=== PATIENT | male | born 1970 | race Caucasian/White ===

== ENCOUNTER → 2016-05-07 | Outpatient (CLI) | payer BC ==
[~2016-05-07] MED LIST: ONDA4TAB7 SL; POTATAB13 PO; TAMS0.4C38 PO
--- NOTE | 2016-05-07 10:00 | DIAGNOSTIC IMAGING REPORT ---
RIGHT KNEE 4 OR MORE CLINICAL HISTORY: RIGHT KNEE PAIN Right pain COMPARISON: None DISCUSSION: Minimal degenerative change medial joint compartment. Mild degenerative change patellofemoral joint. Small reactive osteophyte scattered throughout the intercondylar region as well as superior and inferior patella. There is no evidence for soft tissue swelling. IMPRESSION: Minimal to very mild degenerative change. Mild osteophytic reaction throughout. Electronically signed by: Ángel Murillo M.D. 05/07/2016 9:59 AM Dictated Date/Time: 05/07/2016 9:58 AM
== END | disposition home or self-care (01) ==
LOC: C.RDSM 15:04
PROVIDERS: ATTEND Physician Assistant
DX: M25.561 Pain in right knee (principal)

== ENCOUNTER 2023-02-08 11:54 | Inpatient (IN) ==
[2023-02-08] MEDS ORDERED: NITROGLYCERIN SL 0.4 MG/TAB TAB SL STA (12:00)
--- NOTE | 2023-02-08 12:04 | Emergency Department Note ---
Impression & Plan Unstable angina, Abnormal ECG ED Provider Note Name: CHANDRIKA NI Age: 53 Sex: Male Arrives Via: Ambulance Informant: Patient ED Provider: James Luis MD Chief Complaint: Chest pain Impression: As per impressions above Medical Decision Making: Pleasant 53-year-old gentleman without significant past medical history arrives for evaluation of intermittent substernal chest pain over the last week. More severe this morning while at PCP office and sent to the ER via EMS for further evaluation already received aspirin 324 mg prior to arrival. Still some mild chest pain at this point. Given nitro did seem to improve. Initial EKG is somewhat concerning for T wave inversions and some nonspecific ST elevations. These are new from previous EKG. After pain control symptoms improved and EKG looks better. Initial troponin was good. Chest x-ray looks good. He has no evidence of DVT or dissection. Patient does not have much in the way of risk factors for cardiac disease and he keeps relatively active. Unfortunately with abnormal EKG and his symptoms I feel hospitalization is indicated. Discussed with hospitalist will bring in for further workup and evaluation. Discussed heparin with hospitalist and defer until their evaluation as he is not currently having active chest pain. Triage/Nursing Notes reviewed by Me Differential:Cardiac ischemia, aortic dissection, pulmonary embolism, pneumothorax, pneumonia, pericarditis, myocarditis, esophageal rupture, GERD, cholecystitis, pancreatitis, musculoskeletal, as well as other pathologies. Vital Signs: reviewed and remarkable for no significant abnormalities Interventions: Nitro sublingual Labs:ED labs Reviewed by me and remarkable for no significant abnormalities Imaging:X ray results are stated below per my interpretation: Chest: 1 view: No infiltrate, no effusion, normal cardiac border. EKG:As per my interpretation. Indication chest pain. Normal sinus rhythm at 73 bpm and an incomplete right bundle branch block. There are nonspecific ST elevations anterior and laterally not meeting full STEMI criteria. Does have flipped T waves laterally as well. There are no previous EKGs for comparison. Cardiac/Tele Monitoring: Cardiac Monitoring: An Order was placed for continuous cardiac monitoring. The monitor shows a rate of 70 with a normal sinus rhythm. Consults:Dr Jaleel EWING Hospitalist Plan: Disposition:Hospitalization. Condition: Good History of Present Illness: 53-year-old male arrives for evaluation of chest pain. Patient notes over the last 2 weeks intermittent substernal chest pressure. No radiation of pain. No associated shortness of breath, palpitations, neck pain, nausea, vomiting, lightheadedness or other concerning signs or symptoms. On and off no specific inciting events. States has been active without problem. This morning he once again got symptoms. He took an aspirin and saw his PCP who advised to go to the ER nonnormal was called. Patient notes pain is started to resolve after full dose aspirin by EMS but since getting here he notes some mild return of discomfort. He has not any nitro. Denies any previous cardiac disease. Does have a history of renal colic and kidney stones for which he gets flank pain periodically. Does not take any medications daily. No family history of cardiac disease. Denies any long car trips or travel recently. Past Medical History: Intermittent renal colic Home Medications: No daily medications Allergies: Denies any allergies Vitals:Blood Pressure: 117/78, Pulse 73, RR 18, T 37C, O2 96% on RA Physical Exam: GENERAL: Patient is mildly anxious appearing and in minimal distress. RESPIRATORY: No dyspnea. Clear to auscultation and equal bilaterally. CARDIOVASCULAR: Regular rate and rhythm.No murmur appreciated. GASTROINTESTINAL: Abdomen soft, non-tender, no peritonitis. EXTREMITIES: Normal motion all extremities, no cyanosis, no edema. NEUROLOGIC: Alert and oriented. No focal neurologic deficits appreciated SKIN: No rash, no jaundice, no diaphoresis. PSYCH: Appropriate GCS: 15 ED Course: Times/Reassessments: Stable no distress symptoms have resolved. Discussed with both patient and his at bedside. They are both comfortable plan for hospitalization understand the reasoning is abnormal EKG in the setting of chest pain. James Luis MD Past Med/Surg History Social History Smoking Status: Never smoker Preferred Language: Ugandan Feels Safe at Home: Yes Allergies Allergies Allergy/AdvReac Type Severity Reaction Status Date / Time No Known Allergies AdvReac Unknown Verified 02/08/23 14:45 Home Meds Home Medications Medication Instructions Recorded Confirmed aspirin 81 mg chewable tablet 81 mg PO .TODAY 02/08/23 02/08/23 calcium carbonate 200 mg calcium 0 mg PO BID PRN .. 02/08/23 02/08/23 (500 mg) chewable tablet (Tums) Results & Data (ED) Vital Signs Vital Signs - 24 hr 02/08/23 12:00 02/08/23 12:01 02/08/23 12:23 Temperature 37 C Temperature Source Oral Pulse Rate 80 75 Pulse Rate from SpO2 Sensor Respiratory Rate 18 Blood Pressure 138/90 Blood Pressure Mean 106 Pulse Oximetry 98 98 Oxygen Delivery Method Room Air Sepsis Recent Fever Within 48 Hours No Sepsis New/Unexplained Change in Mental Status No Sepsis Action Taken by Nursing No Action Required 02/08/23 12:30 02/08/23 12:40 02/08/23 12:51 Temperature Temperature Source Pulse Rate 83 76 Pulse Rate from SpO2 Sensor 85 72 Respiratory Rate 23 13 Blood Pressure 127/82 Blood Pressure Mean 97 Pulse Oximetry 94 97 Oxygen Delivery Method Sepsis Recent Fever Within 48 Hours Sepsis New/Unexplained Change in Mental Status Sepsis Action Taken by Nursing 02/08/23 13:00 02/08/23 13:10 02/08/23 13:20 Temperature Temperature Source Pulse Rate Pulse Rate from SpO2 Sensor 65 69 70 Respiratory Rate Blood Pressure Blood Pressure Mean Pulse Oximetry 98 97 98 Oxygen Delivery Method Sepsis Recent Fever Within 48 Hours Sepsis New/Unexplained Change in Mental Status Sepsis Action Taken by Nursing 02/08/23 13:30 02/08/23 13:40 Temperature Temperature Source Pulse Rate Pulse Rate from SpO2 Sensor 71 75 Respiratory Rate Blood Pressure Blood Pressure Mean Pulse Oximetry 97 98 Oxygen Delivery Method Sepsis Recent Fever Within 48 Hours Sepsis New/Unexplained Change in Mental Status Sepsis Action Taken by Nursing Laboratory Data 02/08/23 12:10 02/08/23 12:10 Lab Results 02/08/23 Range/Units 12:10 WBC 6.73 (4.8-10.8) K/ul RBC 4.88 (4.70-6.10) M/uL Hgb 14.7 (14.0-18.0) g/dl Hct 44.9 (42.0-52.0) % MCV 92.0 (80.0-100.0) fL MCH 30.1 (25.0-34.0) pg MCHC 32.7 (32.0-36.0) g/dL RDW Std Deviation 47.2 H (36.4-46.3) fL RDW Coeff of Donnie 13.9 (11.5-14.5) % Plt Count 298 (130-400) K/uL MPV 9.4 (9.4-12.4) fL Immature Gran % (Auto) 0.3 % Neut % (Auto) 53.2 % Lymph % (Auto) 31.5 % Garfield % (Auto) 7.3 % Eos % (Auto) 6.5 % Baso % (Auto) 1.2 % Neut # (Auto) 3.58 (1.40-6.50) K/uL Lymph # (Auto) 2.12 (1.20-3.40) K/uL Garfield # (Auto) 0.49 (0.11-0.59) K/uL Eos # (Auto) 0.44 (0.00-0.50) K/uL Baso # (Auto) 0.08 (0.00-0.20) K/uL Immature Gran # (Auto) 0.02 (0.01-0.20) K/uL Sodium 137 (136-145) mmol/L Potassium 4.5 (3.5-5.1) mmol/L Chloride 106 (98-107) mmol/L Carbon Dioxide 24 (21-32) mmol/L Anion Gap 7 (3-11) BUN 16 (6-23) mg/dl Creatinine 0.66 (0.6-1.4) mg/dl Est Cr Clr Drug Dosing 168.2 ml/min Est GFR ( Amer) 127.9 ml/min Est GFR (Non-Af Amer) 110.4 ml/min BUN/Creatinine Ratio 24.2 H (10-20) Glucose 104 H (70-99(Fasting)) mg/dl Calcium 9.7 (8.6-10.3) mg/dl Magnesium 2.1 (1.7-2.4) mg/dl Total Bilirubin 0.5 (0.2-1.0) mg/dl Direct Bilirubin 0.1 (0-0.2) mg/dl AST 44 H (13-39) U/L ALT 54 H (7-52) U/L Alkaline Phosphatase 56 (34-104) U/L Troponin I High Sens 4.7 (0-20) pg/ml Total Protein 7.1 (6.0-8.3) gm/dl Albumin 4.2 (3.4-5.0) gm/dl Lipase 13 (11-82) U/L Administered Medications Acetaminophen (Acetaminophen 325 Mg Tab) 650 mg PO Q4H PRN PRN Reason: pain or headache Stop: 03/10/23 17:51 Last Admin: 02/08/23 18:01 Dose: 650 mg Documented By: MARKY Heparin Sodium/Dextrose (Heparin Sodium/Dextrose) 25,000 units in 500 mls @ 33 mls/hr IV .[id number] CONSTANZA; Protocol Stop: 03/10/23 14:14 Last Admin: 02/08/23 16:25 Dose: 1,650 units/hr, 33 mls/hr Documented By: MARKY Co-signed By: BRET Discontinued Medications Heparin Sodium/Dextrose (Heparin Iv Adult Wt-Based Standard *No* Initial Bolus Protocol) 1 each IV ONE STA; Protocol Stop: 02/08/23 13:51 Last Admin: 02/08/23 16:25 Dose: 1 each Documented By: MARKY Nitroglycerin (Nitroglycerin Sl 0.4 Mg/Tab Tab) 0.4 mg SL NOW STA Stop: 02/08/23 12:01 Last Admin: 02/08/23 12:20 Dose: 0.4 mg Documented By: BRET Nitroglycerin (Nitroglycerin 2% Ointment 30gm Tube) 0.5 inch EXT ONE STA Stop: 02/08/23 14:28 Last Admin: 02/08/23 15:11 Dose: 0.5 inch Documented By: MARKY Imaging Data Radiologist's Impression: Chest X-Ray 02/08/23 12:01 XR chest 1V portable HISTORY: 53 years-old Male chest pain acute chest pain COMPARISON: 05/20/2014 TECHNIQUE: AP view of the chest FINDINGS: Cardiac silhouette is enlarged. No pneumothorax, pleural effusion, airspace consolidation or pulmonary edema. Bones appear grossly intact. IMPRESSION: No acute process. ACT 112: Negative or not required by law. The above report was generated using voice recognition software. It may contain grammatical, syntax or spelling errors. Electronically signed by: Gregg Amor M.D. 02/08/2023 12:20 PM Discharge Plan Visit Data Chief Complaint: Chest Pain Stated Complaint: Chest Pain ED Provider: James Luis Discharge Problem: Unstable angina, Abnormal ECG Patient Disposition: Admitted As Inpatient Discharge Instructions Interventions: ED Discharge Assessment Last Done: 02/08/23 15:50
--- NOTE | 2023-02-08 12:22 | XRay Report ---
XR chest 1V portable HISTORY: 53 years-old Male chest pain acute chest pain COMPARISON: 05/20/2014 TECHNIQUE: AP view of the chest FINDINGS: Cardiac silhouette is enlarged. No pneumothorax, pleural effusion, airspace consolidation or pulmonar y edema. Bones appear grossly intact. IMPRESSION: No acute process. ACT 112: Negative or not required by law. The above report was generated using voice recognition software. It may contain grammatical, syntax o r spelling errors. Electronically signed by: Gregg Amor M.D. 02/08/2023 12:20 PM
[2023-02-08 12:38] LABS: Basophils # (auto) 0.08 K/uL (0.00-0.20); Basophils % (auto) 1.2 %; Eosinophils # (auto) 0.44 K/uL (0.00-0.50); Eosinophils % (auto) 6.5 %; Hematocrit (blood only) 44.9 % (42.0-52.0); Hemoglobin 14.7 g/dl (14.0-18.0); Immature Granulocytes # (auto) 0.02 K/uL (0.01-0.20); Immature Granulocytes % (auto) 0.3 %; Lymphocytes # (auto) 2.12 K/uL (1.20-3.40); Lymphocytes % (auto) 31.5 %; Mean Corpuscular Hemoglobin 30.1 pg (25.0-34.0); Mean Corpuscular Hgb Conc 32.7 g/dL (32.0-36.0); Mean Platelet Volume 9.4 fL (9.4-12.4); Monocytes # (auto) 0.49 K/uL (0.11-0.59); Monocytes % (auto) 7.3 %; Neutrophils # (auto) 3.58 K/uL (1.40-6.50); Neutrophils % (auto) 53.2 %; Platelet Count 298 K/uL (130-400); RDW Coefficient of Variation 13.9 % (11.5-14.5); RDW Standard Deviation 47.2 fL (36.4-46.3); Red Blood Count 4.88 M/uL (4.70-6.10); White Blood Count 6.73 K/ul (4.8-10.8)
[2023-02-08 12:56] LABS: Albumin Level 4.2 gm/dl (3.4-5.0); BUN Creatinine Ratio 24.2 (10-20); Bilirubin,Total 0.5 mg/dl (0.2-1.0); Calcium 9.7 mg/dl (8.6-10.3); Creatinine Clr Calc Pharmacy 168.2 ml/min; Est GFR (African American) 127.9 ml/min; Est GFR (Non-African American) 110.4 ml/min; Magnesium 2.1 mg/dl (1.7-2.4); Potassium 4.5 mmol/L (3.5-5.1); Total Protein 7.1 gm/dl (6.0-8.3)
[2023-02-08 12:58] LABS: Troponin I High Sensitivity 4.7 pg/ml (0-20)
[2023-02-08 13:11] LABS: Bilirubin Direct 0.1 mg/dl (0-0.2)
[2023-02-08] MEDS ORDERED: Heparin IV Adult Wt-Based Standard *NO* INITIAL Bolus Protocol IV STA (13:50)
[2023-02-08] MEDS ORDERED: NITROGLYCERIN 2% OINTMENT 30GM TUBE EXT STA (14:27)
[2023-02-08] MEDS: HEPARIN SODIUM/DEXTROSE 25,000 UNITS/500 ML BAG IV SCH (16:25)
--- NOTE | 2023-02-08 16:42 | History & Physical Report ---
Date of Service February 08, 2023 Assessment & Plan (1) Chest pain: Plan: Concern for the possibility of unstable angina. Patient will be admitted to PCU Placed on heparin IV and nitroglycerin paste. will consult cardio for possibility of coronary cath. amanda DOWLING after midnight. Admission and Anticipated Discharge Date Admission Date: February 08, 2023 History of Present Illness Chief Complaint: chest pain Primary Care Provider: Stacy Tolbert MD 53 yo male with no significant past medical history present with chest pain. Patient reports this has been ongoing for about 6 weeks where he has noticed it with moments of stress or when he eats. Patient describes the pain as pressure like in nature, located around midsternum, nonradiating. He does reports that for the past 2 weeks, he has noticed the pain more. HOwever he reports in the 2 week time fram, pain has not changed in intensity, nor is brought up with activity, nor is it more frequent. Also no change in duration. In the ED, EKG changes showed Allergies Allergy/AdvReac Type Severity Reaction Status Date / Time No Known Allergies AdvReac Unknown Verified 02/08/23 14:45 Home Medications Medication Instructions Recorded Confirmed Type aspirin 81 mg chewable tablet 81 mg PO .TODAY 02/08/23 02/08/23 History calcium carbonate 200 mg calcium 0 mg PO BID PRN .. 02/08/23 02/08/23 History (500 mg) chewable tablet (Tums) Past Med/Surg History Social History Smoking Status: Never smoker Hx Alcohol Use: Yes Alcohol type: beer and hard liquor Hx Substance Use: No Preferred Language: Jamaican Communication Ability: Effective Caption Writer Required: No Beliefs That Will Affect Care: None Current Living Situation: Parent Feels Safe at Home: Yes Assistive Devices: None Review of Systems Constitutional: no fever Eyes: no blind spots Ear, Nose, Mouth, Throat: no ear pain Respiratory: no cough Cardiovascular: + chest pain; no radiating jaw, neck or arm pain Gastrointestinal: no abdominal pain Musculoskeletal: no back pain Integumentary: no acne Neurologic: no gait abnormality Psychiatric: no behavioral changes Endocrine: no fatigue Allergy / Immunological: no GI upset with certain foods Physical Exam Constitutional: WD/WN, vitals as above Eyes: PERRL, conjunctivae normal, anicteric sclerae ENMT: external ear and nose normal, oropharynx normal Neck: trachea midline, no thyromegaly Respiratory: normal respiratory effort, lungs clear to auscultation Cardiovascular: RRR, no murmur, no edema Gastrointestinal (Abdomen): normal bowel sounds, soft, nontender, no hepatosplenomegaly Musculoskeletal: no cyanosis or clubbing, extremities motor strength 5/5 Skin: no rashes, warm and dry Psychiatric: A+Ox3, euthymic affect Lymphatic: no cervical or axillary lymphadenopathy Results & Data Results & Data Vital Signs (Past 12 Hours) Vital Signs Temp Pulse Resp BP Pulse Ox O2 Del Method 02/08/23 12:23 75 02/08/23 12:01 37 C 80 18 138/90 98 02/08/23 12:00 98 Room Air PG Care Time/CCT Total # of Minutes Spent Total Time Spent with Patient: Total time spent is greater than 50% in coordination of care (as documented) at patient's floor/unit and/or counseling patient: Coding Level of Care Code 00388 INT INP/OBS CARE MIN Diagnoses Chest pain R07.9
--- OUTSIDE RECORDS SUMMARY | 2023-02-08 17:13 | External Medical Summary | Continuity of Care Document ---
Author Name Unknown Organization [facility] [address] [facility] Address [address] [place], [place] [id number] Care Team Providers Care Unarmed Security Guard Name Role Phone Stacy Tolbert Primary Care Physician [phone] [id number] Date(s): 08/27/22 - 08/27/22 [facility] [address], [address] [place] [address] [phone] Encounter Diagnosis YULIANA (obstructive sleep apnea)(Discharge Diagnosis) - 08/27/22 Discharge Disposition: Home or Self Care Attending Physician: MD Tolbert Amy L Allergies, Adverse Reactions, Alerts No Known Medication Allergies Assessment and Plan Extracted from: Title:Office Visit Note Author:MD Tolbert Amy L D ate:08/27/22 YULIANA (obstructive sleep apnea ) STATUS: Chronic, worse. DATA: hx& sleep study reviewed. GOAL: Maintain nocturnal oxygenation, improve energy. PLAN: discussed nature of sleep apnea. Reviewed implications of severe YULIANA, as well as tx options. Order auto-titrating CPAP. Discussed use of small devices made for travel (but likely at his own expense). Return in 2 months for recheck. Return in 2 months. Immunizations Given and Recorded Vaccine Date Status Refusal Reason influenza virus vaccine, inactivated 10/30/18 Give n influenza virus vaccine, inactivated 11/02/16 Give n tetanus/diphtheria/pertuss, acel (Tdap) 11/02/16 G iven Medications No Known Medications Mental Status 08/27/22 Barriers to Learning one year None evide nt Mandatory Health Literacy Documentation Yes Health Literacy Communication Barriers N ever Primary Language Kittitian Problem List Condition Confirmation Course Effective Dates Status Health St atus Informant Acute URI Confirmed Active Chronic prostatitis with hematuria Confirmed Active Thyromegaly Confirmed Active Dry cough Confirmed Active Family history of prostate cancer Confirmed Active Family history of kidney stone Confirmed Active Hematuria, gross Confirmed Active Hernia, inguinal, left Confirmed Active Lipoma Confirmed Active Dysplastic nevi Confirmed Active Night sweats Confirmed Active YULIANA (obstructive sleep apnea) Confirmed Active Overweight Confirmed Active Annual physical exam Confirmed Active Annual physical exam Confirmed Active Generalized skin lesions Confirmed Active Synovial hypertrophy Confirmed Active Tear of medial meniscus of knee Confirmed Active Tobacco user Confirmed Active Weight disorder Confirmed Active Diagnosis Diagnosis Type Effective Dates Health Status Cl inical Service Informant YULIANA (obstructive sleep apnea) Discharge Diagnosis 08/27/22 Non-Specified Procedures Procedure Date Related Diagnosis Body Site Status Ultrasound 1 11/01/18 Completed X-ray of right knee 2 05/07/16 Com pleted KUB X-ray 3 02/17/15 Completed Intravenous pyelogram 4 07/02/14 C ompleted X-ray of abdomen 5 06/05/14 Comple elaina X-ray of abdomen 6 05/23/[address] of abdomen and pelvis 7 05/15/14 Completed Knee X-ray 8 02/13/14 Completed Repair of inguinal hernia 9 11/23/13 Completed Ultrasound 10 09/10/13 Completed History of shoulder surgery 11 Completed 1IMPRESSION: 1. Several subcentimeter thyroid nodules which have benign imaging characteristics. None meet criteria for biopsy. 2. Mild enlargement of the right thyroid lobe. 2Minimal to very mild degerative change. Mild osteophytic reaction throughout. 3Decrease in number of stones within the lower pole of the left kidney. No ureteral calculi. 4Several calculi gragments within the lower pole of the left kidney. Otherwise, normal intravenous pyelogram. No uretal calculi. No hydronephrosis. 5Left-sided nephrolithiasis. A 6mm left pelvic basin calcification viewed as suspicious for a calculus at the levrl of the left 6Left sided nephrolithiasis. No evidence of pathologic bowel dilatation 7Clustered claculi wihtin the lower pole of lef kidney measuring up to 7 mm. No ureteral calculi or hydronephrosis 8Suspected bilateral small loose bodies. No evidence of fracture, Bilateral degenerative changes in the patellofemoral joints with dorsal patellar spurring bilaterally. 9Left 10Reducible fat containing left inguinal hernia ht 1991 Vital Signs Most recent to oldest [Reference Range]: 1 Patient Weight 98.7 kg (08/27/22 9:31 AM) Heart Rate 62 bpm (08/27/22 9:31 AM) Respiratory Rate 20 br/min (08/27/22 9:31 AM) Blood Pressure 104/72mmHg (08/27/22 9:31 AM) Cuff Pulse Pressure 32 mmHg (08/27/22 9:31 AM) BP Location # 1 Left Arm, Manual (08/27/22 9:31 AM) Social History Social History Type Response Smoking Status Never smoked cigaret viviana Sex Male FCM Outpt Note * MD Tomasz, Stacy Patel: PERFORM Event Display: FCM Outpt Note Authored Date: [id number] Chief Complaint Discussed sleep study results History of Present Illness YULIANA - to discuss CPAP, as he had recent sleep study that showed severe sleep.He does acknowledge that he is frequently tired/sleepy during the day. Not sure about snoring. Physical Exam Vitals & Measurements HR:62(Monitored) RR:20 BP:104/72 SpO2:97% WT:98.700kg(Dosing) WT:98.7kg PHQ2 Data(Data Documented on:08/27/2022 09:31) Emotional health assessment NEGATIVE General : Alert, in NAD. Respiratory : Speaks easily in full sentences, with no respiratory distress. Psych : answers all questions appropriately, mood seems normal. Assessment/Plan YULIANA (obstructive sleep apnea) STATUS: Chronic, worse. DATA: hx& sleep study reviewed. GOAL: Maintain nocturnal oxygenation, improve energy. PLAN: discussed nature of sleep apnea. Reviewed implications of severe YULIANA, as well as tx options. Order auto-titrating CPAP. Discussed use of small devices made for travel (but likely at his own expense). Return in 2 months for recheck. Return in 2 months. Problem List/Past Medical History Ongoing Acute URI Annual physical exam Annual physical exam Chronic prostatitis with hematuria Dry cough Dysplastic nevi Family history of kidney stone Family history of prostate cancer Generalized skin lesions Hematuria, gross Hernia, inguinal, left Lipoma Night sweats YULIANA (obstructive sleep apnea) Overweight Synovial hypertrophy Tear of medial meniscus of knee Thyromegaly Tobacco user Weight disorder Procedure/Surgical History Ultrasound (11/01/2018)X-ray of right knee (05/07/2016)KUB X-ray (02/17/2015)Intravenous pyelogram (07/02/2014)X-ray of abdomen (06/05/2014)X-ray of abdomen (05/23/2014)CT of abdomen and pelvis (05/15/2014)Knee X-ray (02/13/2014)Repair of inguinal hernia (11/23/2013)Ultrasound (09/10/2013)History of shoulder surgery Allergies No Known Medication Allergies Social History Smoking Status Never smoked cigarettes Alcohol Use:Current Type:Beer Frequency:3-5 times per week Average drinks per episode in last year:2 Exercise Times per week:5-6 times/week 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 Prostate carcinoma: Father (Dx at 76). Health Status Family Member(s) Immunizations Vaccine Date Status influenza virus vaccine, inactivated 10/30/2018 Given influenza virus vaccine, inactivated 11/02/2016 Given tetanus/diphtheria/pertuss, acel (Tdap) 11/02/2016 Given Recommendations Health Maintenance Pending(in the next year) Due Adult Influenza Vaccine due08/07/22and every 1year Adult COVID-19 Vaccination due08/27/22Unknown Frequency Hepatitis C Screening due08/27/22One-time only Lipid Screening due08/27/22Unknown Frequency Shingles Vaccine due08/27/22One-time only Due In Future Body Mass Index not due until08/27/23and every 1year Satisfied(in the past 1 year) Satisfied Body Mass Index on03/11/22.Satisfied by SALOMÓN Metzger Paul Colorectal Cancer Screening on04/13/22.Satisfied by LUC Hart Cassidy Electronic Signature on File Electronically Reviewed/Signed by: Stacy Tolbert MD Author Signature Dt/Tm:08/27/2022 09:59 AM [facility] [address] [place] [address] [facility] Patient Care team information Care Team Personnel Name: MD Tolbert Amy L Position: Physician - Family Med Member Role: Primary Care Provider Address: Address: [address] [place] [address], [place] [address] [place] Care Team Related Persons Name: MEE NI Address: [place] Address: home [address] [place], [place] [id number] Name: BACILIO NI Address: home [address] [place], [place] [id number]
--- OUTSIDE RECORDS SUMMARY | 2023-02-08 17:13 | External Medical Summary | Continuity of Care Document ---
Author Name Unknown Organization [facility] [address] [facility] Address [address] [place], [place] [id number] Care Team Providers Care Manager Surgical Name Role Phone Stacy Tolbert Primary Care Physician [phone] [id number] Date(s): 12/03/22 - 12/03/22 [facility] [address], [address] [place] [address] [phone] Encounter Diagnosis YULIANA (obstructive sleep apnea)(Discharge Diagnosis) - 12/02/22 Family history of prostate cancer in father(Discharge Diagnosis) - 12/03/22 Discharge Disposition: Home or Self Care Attending Physician: MD Tolbert Amy L Referring Physician: MD Tolbert Amy L Allergies, Adverse Reactions, Alerts No Known Medication Allergies Assessment and Plan Extracted from: Title:Office Visit Note Author:MD Tolbert Amy L D ate:12/03/22 1.YULIANA (obstructive sleep a pnea) STATUS: Chronic, stable. DATA: hxreviewed. GOAL: Maintain nocturnal oxygenation, improve energy. PLAN: reviewed compliance report. He has worn mask over 80% of nights, almost all of which are >4hours. Reassured that he is doing well. Advised to take his mask to medical supplier to see if they feel that there are any leaks.Encouraged that his ability to tolerate CPAP should improve & would expect that his energy should also improve. 2.Family history of prostate cancer in father Discussed risks & benefits of PSA testing. He opts to have it done, will refer to urology, if elevated. Return in 4-6 months. Immunizations Given and Recorded Vaccine Date Status Refusal Reason influenza virus vaccine, inactivated 12/03/22 Give n influenza virus vaccine, inactivated 10/30/18 Give n influenza virus vaccine, inactivated 11/02/16 Give n tetanus/diphtheria/pertuss, acel (Tdap) 11/02/16 G iven Medications No Known Medications Mental Status 12/03/22 Mandatory Health Literacy Documentation Yes Health Literacy Communication Barriers N ever Primary Language Monegasque Problem List Condition Confirmation Course Effective Dates [...] Diagnosis Diagnosis Type Effective Dates Health Status inical Service Informant YULIANA (obstructive sleep apnea) Discharge Diagnosis 12/02/22 Non-Specified Family history of prostate cancer in father Discharge Diagnosis 12/03/22 Non-Specified Procedures Procedure Date Related Diagnosis Body Site Status Polysomnograph 1 05/31/22 Complete d Ultrasound 2 11/01/18 Completed X-ray of right knee 3 05/07/16 Com pleted KUB X-ray 4 02/17/15 Completed Intravenous pyelogram 5 07/02/14 C ompleted X-ray of abdomen 6 06/05/14 Comple elaina X-ray of abdomen 7 05/23/[address] of abdomen and pelvis 8 05/15/14 Completed Knee X-ray 9 02/13/14 Completed Repair of inguinal hernia 10 11/23/13 Completed Ultrasound 11 09/10/13 Completed History of shoulder surgery 12 Completed 1NovaSom Impression: 1. Severe YULIANA 2IMPRESSION: 1. Several subcentimeter thyroid nodules which have benign imaging characteristics. None meet criteria for biopsy. 2. Mild enlargement of the right thyroid lobe. 3Minimal to very mild degerative change. Mild osteophytic reaction throughout. 4Decrease in number of stones within the lower pole of the left kidney. No ureteral calculi. 5Several calculi gragments within the lower pole of the left kidney. Otherwise, normal intravenous pyelogram. No uretal calculi. No hydronephrosis. 6Left-sided nephrolithiasis. A 6mm left pelvic basin calcification viewed as suspicious for a calculus at the levrl of the left 7Left sided nephrolithiasis. No evidence of pathologic bowel dilatation 8Clustered claculi wihtin the lower pole of lef kidney measuring up to 7 mm. No ureteral calculi or hydronephrosis 9Suspected bilateral small loose bodies. No evidence of fracture, Bilateral degenerative changes in the patellofemoral joints with dorsal patellar spurring bilaterally. 10Left 11Reducible fat containing left inguinal hernia 12right 1991 Vital Signs Most recent to oldest [Reference Range]: 1 Patient Weight 98.8 kg (12/03/22 1:39 PM) Heart Rate 70 bpm (12/03/22 1:39 PM) Blood Pressure 110/62mmHg (12/03/22 1:39 PM) Cuff Pulse Pressure 48 mmHg (12/03/22 1:39 PM) BP Location # 1 Left Arm (12/03/22 1:39 PM) Social History Social History Type Response Smoking Status Never smoked cigaret viviana Sex Male [facility] Outpt Note * MD Tomasz, Stacy Patel: PERFORM Event Display: FCM Outpt Note Authored Date: Chief Complaint follow up, discuss kidney stones, would like PSA, CPAP compliance History of Present Illness Here for recheck offollowing concerns : 1)YULIANA - he has been using his CPAP almost every night. He knows that it should be helping him, but gets frustrated, because he feels that he's not sleeping as well since he started using it. Hesometimes has to take it off, as he just can't get to sleep at all while wearing it. 2) Nocturia - he has had this 1-2 times per night, mostly once. No dribbling or hesitation duringday. He may go a little more often during day. His father was diagnosed with prostate cancer in his 80's. He wondered if he should get his PSA tested. Physical Exam Vitals & Measurements HR:70(Monitored) BP:110/62 SpO2:97% WT:98.8kg WT:98.800kg(Dosing) PHQ2 Data(Data Documented on:12/03/2022 13:39) Emotional health assessment NEGATIVE General : Alert, in NAD. Respiratory : Speaks easily in full sentences, with no respiratory distress. Psych : answers all questions appropriately, mood seems normal. Assessment/Plan 1.YULIANA (obstructive sleep apnea) STATUS: Chronic, stable. DATA: hxreviewed. GOAL: Maintain nocturnal oxygenation, improve energy. PLAN: reviewed compliance report. He has worn mask over 80% of nights, almost all of which are >4hours. Reassured that he is doing well. Advised to take his mask to medical supplier to see if they feel that there are any leaks.Encouraged that his ability to tolerate CPAP should improve& would expect that his energy should also improve. 2.Family history of prostate cancer in father Discussed risks & benefits of PSA testing. He opts to have it done, will refer to urology, ifelevated. Return in 4-6 months. Problem List/Past Medical History Ongoing Acute URI Annual physical exam Annual physical exam Chronic prostatitis with hematuria Dry cough Dysplastic nevi Family history of kidney stone Family history of prostate cancer Generalized skin lesions Hematuria, gross Hernia, inguinal, left Lipoma Night sweats YULIANA (obstructive sleep apnea) Overweight Synovial hypertrophy Tear of medial meniscus of knee Thyromegaly Tobacco user Weight disorder Procedure/Surgical History Polysomnograph (05/31/2022)Ultrasound (11/01/2018)X-ray of right knee (05/07/2016)KUB X-ray (02/17/2015)Intravenous pyelogram (07/02/2014)X- ray of abdomen (06/05/2014)X-ray of abdomen (05/23/2014)CT of [...] Recommendations Health Maintenance Pending(in the next year) OverDue Adult Influenza Vaccine due08/07/22and every 1year Due Adult COVID-19 Vaccination due12/03/22Unknown Frequency Hepatitis C Screening due12/03/22One-time only Lipid Screening due12/03/22Unknown Frequency Shingles Vaccine due12/03/22One-time only Due In Future Body Mass Index not due until12/03/23and every 1year Satisfied(in the past 1 year) Satisfied Body Mass Index on03/11/22.Satisfied by SALOMÓN Metzger Paul Colorectal Cancer Screening on04/13/22.Satisfied by LUC Hart Cassidy Electronic Signature on File Electronically Reviewed/Signed by: Stacy Tolbert MD Author Signature Dt/Tm:12/03/2022 02:12 PM [facility] [address] [address] [facility] Patient Care team information Care Team Personnel Name: MD Tomasz, Stacy Patel Position: Physician - Family Med Member Role: Primary Care Provider Address: Address: [address] [place] [address] [place] Care Team Related Persons Name: MEE NI Address: [facility] Address: home [address] [place] [phone] Name: BACILIO NI Address: home [address] [place] [phone]
--- OUTSIDE RECORDS SUMMARY | 2023-02-08 17:13 | External Medical Summary | Continuity of Care Document ---
Author Name Unknown Organization [facility] Address [address] [place], [place] [id number] Care Team Providers Care Cooling System Operator Name Role Phone Stacy Tolbert Primary Care Physician [phone] [id number] Date(s): 08/27/22 - 08/27/22 [facility] [address] [place] [address] [phone] Encounter Diagnosis YULIANA (obstructive sleep apnea)(Discharge Diagnosis) [...] Literacy Communication Barriers N ever Primary Language Egyptian Problem List Condition Confirmation Course Effective Dates [...] Event Display: FCM Outpt Note Authored Date: [id number] Chief Complaint Discussed sleep study results History [...] Tolbert MD Author Signature Dt/Tm:08/27/2022 09:59 AM [facility] [address] [place] [address] [facility] Patient Care team information Care Team Personnel Name: MD Tolbert Amy L Position: Physician - Family Med Member Role: Primary Care Provider Address: Address: [address] [place] [address], [place] [address] [place] Care Team Related Persons Name: MEE NI Address: [place] Address: home [address] [place], [place] [phone] Name: BACILIO NI Address: home [address] [place], [place] [id number]
--- NOTE | 2023-02-08 17:16 | Cardiology Consultation ---
Date of Consultation February 08, 2023 Assessment & Plan (1) Chest pain: 2. YULIANA 3. Elevated LFTs Patient here with intermittent chest pain and dynamic EKG changes concerning for possible ACS. Initial HS TropI normal. Currently patient is chest pain-free, and hemodynamically and electrically stable. No need for urgent cardiac catheterization at this time. Recommendations: Admit for further monitoring on telemetry. Trend troponin, check echocardiogram in a.m. Continue aspirin, Nitropaste, start statin Start heparin, beta-irma if recurrent chest pain or troponin elevated Further ischemic testing tomorrow pending course. Please keep n.p.o. past midnight. If recurrent/persistent chest pain overnight please contact and will reconsider need for urgent cath History of Present Illness Attending Physician: Cal Marmolejo History of Present Illness Mr. Vega is a very pleasant 53-year-old man seen today in the ED due to stuttering chest pain and concern for ACS. No prior cardiac history. Past medical history includes YULIANA on CPAP and nephrolithiasis. No significant family history of CAD. Non-smoker. Patient endorses intermittent chest pain occurring primarily at rest over the last several weeks. Describes substernal pain, sometimes burning with occasional discomfort and back. No nausea, no presyncope, no palpitations. Episodes lasting minutes before going away on their own. He remains active playing tennis, hiking, exercising with no chest pain. Today had slightly more severe episode and presented to primary care who sent patient to ED after ECG. On arrival to ED ECG showed sinus rhythm with borderline ST elevations in V2 through V6 with T wave inversions in V4 through V6. Repeat ECG 30 minutes later showed resolution of ST changes. Initial HS TropI 4.7. Chest x-ray with no acute process. Currently patient states he is feeling well. Given aspirin, started on Nitropaste. Denies any significant chest pain over the last 3+ hours in the ED. Allergies Allergy/AdvReac Type Severity Reaction Status Date / Time No Known Allergies AdvReac Unknown Verified 02/08/23 14:45 Home Medications Medication Instructions Recorded Confirmed Type aspirin 81 mg chewable tablet 81 mg PO .TODAY 02/08/23 02/08/23 History calcium carbonate 200 mg calcium 0 mg PO BID PRN .. 02/08/23 02/08/23 History (500 mg) chewable tablet (Tums) Patient History Social History Smoking Status: Never smoker Preferred Language: Uzbek Feels Safe at Home: Yes Review of Systems Review of Systems: All systems reviewed & are unremarkable except as noted in HPI & below Physical Exam Physical Exam: General: Comfortable HEENT: Sclerae anicteric Lungs: Clear to auscultation bilaterally, no crackles or wheezes Cardiac: Regular rate and rhythm, no murmurs. Vascular: 2+ radial, DP pulses. No bruits Abdomen: Soft, nontender Extremities: Well perfused, no peripheral edema Neuro: Nonfocal Psych: Alert orient x3, normal affect and mood Results & Data Vital Signs (Past 12 Hours) Vital Signs Temp Pulse Resp BP Pulse Ox O2 Del Method 02/08/23 12:23 75 02/08/23 12:01 98.6 F 80 18 138/90 98 02/08/23 12:00 98 Room Air PG Care Time/CCT Total # of Minutes Spent Total Time Spent with Patient: Total time spent is greater than 50% in coordination of care (as documented) at patient's floor/unit and/or counseling patient: Coding Level of Care Code 49436 OFFICE CONSULT LVL M Diagnoses Chest pain R07.9
[2023-02-08 17:19] LABS: Partial Thromboplastin Time 29 Seconds (21-31); Prothrombin Time 11.1 Seconds (9.0-12.0)
[2023-02-08] MEDS: ACETAMINOPHEN 325 MG TAB PO PRN (18:01)
[2023-02-08 23:21] LABS: ANTI-Xa, UFH(UnfractionatedHep 0.31 IU/ml (0.3-0.7)
[2023-02-09] MEDS: ACETAMINOPHEN 325 MG TAB PO PRN (00:48)
[2023-02-09] MEDS: NITROGLYCERIN 2% OINTMENT 30GM TUBE EXT SCH ×2 (01:43→07:13)
[2023-02-09 06:23] LABS: Hemoglobin 13.7 g/dl (14.0-18.0); Mean Corpuscular Hemoglobin 30.2 pg (25.0-34.0); Mean Corpuscular Hgb Conc 32.6 g/dL (32.0-36.0); Mean Corpuscular Volume 92.7 fL (80.0-100.0); Mean Platelet Volume 9.1 fL (9.4-12.4); Platelet Count 273 K/uL (130-400); RDW Coefficient of Variation 13.7 % (11.5-14.5); RDW Standard Deviation 47.1 fL (36.4-46.3); Red Blood Count 4.53 M/uL (4.70-6.10); White Blood Count 8.79 K/ul (4.8-10.8)
[2023-02-09 06:34] LABS: BUN Creatinine Ratio 26.2 (10-20); Calcium 8.9 mg/dl (8.6-10.3); Creatinine Clr Calc Pharmacy 170.8 ml/min; Est GFR (African American) 128.7 ml/min; Est GFR (Non-African American) 111.1 ml/min; Potassium 4.1 mmol/L (3.5-5.1)
[2023-02-09] MEDS: HEPARIN SODIUM/DEXTROSE 25,000 UNITS/500 ML BAG IV SCH (07:35)
[2023-02-09] MEDS ORDERED: ASPIRIN 81 MG ECTAB PO SCH (09:00)
--- NOTE | 2023-02-09 09:37 | Cardiology Progress Note ---
Date of Service February 09, 2023 Assessment & Plan (1) Chest pain: Plan: 2. YULIANA 3. Elevated LFTs Chest pain free. Troponin remains negative. Echo reviewed at bedside shows normal biventricular function with no wall motion abnormalities. Plan on further risk stratification with exercise stress echo later today. Can discontinue heparin, nitropaste. If stress test unremarkable Ok with discharge later today from a cardiac standpoint. Admission and Anticipated Discharge Date Admission Date: February 08, 2023 Subjective Feeling well this morning. No additional chest pain over night. No other issues. Review of Systems Review of Systems: All systems reviewed & are unremarkable except as noted in HPI & below Physical Exam Physical Exam: General: Comfortable HEENT: Sclerae anicteric Lungs: Clear to auscultation bilaterally, no crackles or wheezes Cardiac: Regular rate and rhythm, no murmurs. Vascular: 2+ radial Abdomen: Soft, nontender Extremities: Well perfused, no peripheral edema Neuro: Nonfocal Psych: Alert orient x3, normal affect and mood Results & Data Vital Signs (Past 12 Hours) Vital Signs Temp Pulse Pulse Resp BP BP Pulse Ox 02/09/23 07:38 98.2 F 73 15 146/84 H 93 02/09/23 06:58 68 02/09/23 04:30 62 15 02/09/23 04:12 64 02/09/23 01:43 59 L 19 108/75 02/09/23 01:00 65 18 02/09/23 00:40 64 20 131/87 95 02/09/23 00:39 68 18 131/87 95 02/09/23 00:00 67 14 02/08/23 23:30 66 14 02/08/23 22:30 75 20 02/08/23 22:20 77 22 02/08/23 22:10 76 22 02/08/23 22:00 69 21 96 02/08/23 21:50 75 15 02/08/23 21:40 67 22 O2 Del Method 02/09/23 07:38 Room Air 02/09/23 06:58 02/09/23 04:30 02/09/23 04:12 02/09/23 01:43 02/09/23 01:00 02/09/23 00:40 Room Air 02/09/23 00:39 02/09/23 00:00 02/08/23 23:30 02/08/23 22:30 02/08/23 22:20 02/08/23 22:10 02/08/23 22:00 Room Air 02/08/23 21:50 02/08/23 21:40 PG Care Time/CCT Total # of Minutes Spent Total Time Spent with Patient: Total time spent is greater than 50% in coordination of care (as documented) at patient's floor/unit and/or counseling patient: Coding Level of Care Code 20171 SUB INP/OBS CARE 3/50MIN Diagnoses Chest pain R07.9
--- NOTE | 2023-02-09 11:00 | Electrocardiogram Report ---
Test Reason : Blood Pressure : / mmHG Vent. Rate : 073 BPM Atrial Rate : 073 BPM P-R Int : 174 ms QRS Dur : 094 ms QT Int : 396 ms P-R-T Axes : 030 011 081 degrees QTc Int : 436 ms Normal sinus rhythm Incomplete right bundle branch block Anterior ST abnormality T wave abnormality, consider lateral ischemia Abnormal ECG When compared with ECG of 20-MAY-2014 15:20, T wave inversion now evident in Lateral leads Confirmed by Eladio Mullen ([id number]) on 02/09/2023 11:00:10 AM Referred By: REFERRED SELF Confirmed By:Eladio Mullen
--- NOTE | 2023-02-09 11:01 | Electrocardiogram Report ---
Test Reason : Blood Pressure : / mmHG Vent. Rate : 077 BPM Atrial Rate : 077 BPM P-R Int : 178 ms QRS Dur : 088 ms QT Int : 412 ms P-R-T Axes : 025 -19 066 degrees QTc Int : 466 ms Normal sinus rhythm Anterior infarct , age undetermined Anterior ST abnormality Abnormal ECG When compared with ECG of 08-FEB-2023 11:58, (unconfirmed) Anterior infarct is now Present Confirmed by Eladio Mullen ([id number]) on 02/09/2023 11:00:44 AM Referred By: REFERRED SELF Confirmed By:Eladio Mullen
--- NOTE | 2023-02-09 11:32 | XCELERA ---
[id number] \\[id number]___[id number]
--- NOTE | 2023-02-09 13:23 | XCELERA ---
[id number] \\[email or web address]\[id number]___[id number].pdf
--- NOTE | 2023-02-09 13:49 | Discharge Summary ---
Date of Service February 09, 2023 Admission HPI Per Admitting Provider 53 yo male with no significant past medical history present with chest pain. Patient reports this has been ongoing for about 6 weeks where he has noticed it with moments of stress or when he eats. Patient describes the pain as pressure like in nature, located around midsternum, nonradiating. He does reports that for the past 2 weeks, he has noticed the pain more. HOwever he reports in the 2 week time fram, pain has not changed in intensity, nor is brought up with activity, nor is it more frequent. Also no change in duration. In the ED, EKG changes showed Principal Diagnosis Chest pain Discharge Exam Patient resting in bed. Discharge Data Allergies Allergy/AdvReac Type Severity Reaction Status Date / Time No Known Allergies AdvReac Unknown Verified 02/08/23 14:45 Consultations 02/08/23 13:31 ED Decision to Admit Stat 02/08/23 13:44 Consult Cardiology Routine Hospital Course (1) Chest pain: Concern for the possibility of unstable angina. Patient will be admitted to PCU Placed on heparin IV and nitroglycerin paste. Consulted cardiology Patient had a negative stress test. Cardiology did not feel a cardiac cath was warranted. Trops were also negative. Total Time Total Time Spent Total Time Spent (In Minutes): 32 Discharge Plan Discharge Items Patient Disposition: Home - Self-Care Reason For Visit: CHEST PAIN, POSSIBLE UNSTABLE ANGINA Discharge Diagnosis: chest pain Activity: Resume your previous activity Non-emergency contact: Primary Care Provider Call non-emergency contact if: you have any medication questions Follow-up/Referrals: Stacy Tolbert MD [Primary Care Provider] - Diet: Regular Addtl Attending Provider Instructions: You have been evaluated for chest pain. Thankfully, the results you were ordered puts you in a low risk for a heart attack We also ruled out other causes of chest pain that can be life threatening. Will recommend you followup with your PCP in 1-2 weeks. Pending Studies at Discharge: No Stand-Alone Forms: My [employer], Smoking Cessation Medications and DC Order Prescriptions: Continued calcium carbonate [Tums] 200 mg calcium (500 mg) Tablet,Chewable 0 mg PO BID PRN (Reason: ..) aspirin 81 mg Tablet,Chewable 81 mg PO .TODAY Discharge Orders: Discharge Order (Routine); Ordered 02/09/23 Ordered By: Cal Marmolejo Admission Data Admit Date/Time: 02/08/23 13:42 Attending Provider: Cal Marmolejo Admit Provider: Cal Marmolejo Primary Care Provider: Stacy Tolbert Other Providers: Cal Marmolejo; Sukumar Pickard Other Interventions: Discharge Summary Assessment (RN) Last Done: 02/09/23 14:20 Coding Level of Care Code 86523 INP/OBS DISCH >30 MIN Diagnoses Chest pain R07.9
== END 2023-02-09 14:20 | disposition home or self-care (01) | DRG 313 ==
LOC: SUATTDRO → ED 11:54 → EDINP 13:42